=== PATIENT | female | born 1950 | race Caucasian/White ===

== ENCOUNTER 2018-03-24 16:02 | Emergency (ER) | payer OTHER, MEDICARE ==
--- NOTE | 2018-03-24 16:15 | PDOC ---
Rapid Medical Evaluation Time Seen by Provider: 03/24/18 16:10 Medical Evaluation: Allergies Allergy/AdvReac Type Severity Reaction Status Date / Time No Known Allergies Allergy Verified 03/24/18 16:09 03/24/18 16:10 Pt presents to the ED for possible mechanical trip and fall earlier today. States she fell backward and hit her head in the parking lot of her apartment building. Thinks she may have been unbalanced. Also with L back pain and hip pain. Doesn't think she lost consciousness, but she is unsure. States she heard a crack. Takes a baby aspirin daily. Denies dizziness, recent illness. Exam: ambulatory with cane, no gross neuro deficits Orders: Head CT, labs, urine,ekg Pt to proceed to the ED for further evaluation Discharge Disposition - Diagnosis Fall Qualifiers: Encounter type: initial encounter Qualified Code(s): W19.XXXA - Unspecified fall, initial encounter Head pain Qualifiers: Headache type: unspecified Headache chronicity pattern: acute headache Intractability: not intractable Qualified Code(s): R51 - Headache - Referrals - Patient Instructions - Post Discharge Activity
[2018-03-24 16:19] VITALS: BP 170/90; PULSE 80; BMI 40.3
--- NOTE | 2018-03-24 16:30 | PDOC ---
History of Present Illness - General Chief Complaint: Injury Stated Complaint: INJURY Time Seen by Provider: 03/24/18 16:10 - History of Present Illness Initial Comments: 68yo F with HTN, HLD, CKD stage 4 presenting after a fall. Patient was taking groceries from the car and felt off balance, hitting the back of her head. The episode was unwitnessed and she does not think she lost consciousness. Denies nausea, vomiting, urinary or fecal incontinence during/after the episode. Denies history of dysrhythmia or seizure. She reports 8/10 pain in her left lower back, especially when she moves. Patient takes ASA. She has been able to ambulate after fall. Patient has urinated since the fall and did not notice hematuria. No fever, chills, chest pain, or shortness of breath. Past History - Past Medical History Allergies/Adverse Reactions: Allergies Allergy/AdvReac Type Severity Reaction Status Date / Time No Known Allergies Allergy Verified 03/24/18 16:09 Home Medications: Ambulatory Orders Acetaminophen 650 mg PO Q6H PRN #30 tablet 03/24/18 Acetaminophen 650 mg PO Q6H PRN #60 tablet 03/24/18 Aspirin 81 mg PO DAILY 03/24/18 Candesartan Cilexetil [Atacand -] 32 mg PO DAILY 03/24/18 COPD: No Diabetes: Yes (insulin) HTN: Yes Hypercholesterolemia: Yes - Surgical History Cholecystectomy: Yes GI Surgery: Yes (ERCP) - Suicide/Smoking/Psychosocial Hx Smoking History: Never smoked Review of Systems - Review of Systems Comments:: Constitutional: no fever, no chills HEENT: no throat pain, no dysphagia Cardiovascular: no chest pain, no palpitations Respiratory: no cough, no shortness of breath Gastrointestinal: no abdominal pain, no nausea, no vomiting Genitourinary: no dysuria, no frequency Musculoskeletal: +back pain, no arthralgia Skin: +swelling in back of head, no itching Neurologic: no headache, no dizziness *Physical Exam - Vital Signs Last Vital Signs Temp Pulse Resp BP Pulse Ox 80 18 170/90 99 03/24/18 16:18 03/24/18 16:18 03/24/18 16:18 03/24/18 16:18 - Physical Exam Comments: General: Awake, alert, and fully oriented, in no acute distress Head: soft tissue swelling on back of head with superficial abrasion, hemostatic with dried blood in hair Eyes: EOMI, sclera anicteric ENT: Moist mucus membranes Neck: Normal ROM, supple Lungs: Lungs clear, Normal breath sounds Cardio: Regular rhythm, S1 and S2 present Abdomen: Soft, nontender. No guarding, no rebound, no masses Extremities: Normal range of motion, Distal pulses present SKIN: Warm, Dry, normal turgor Neurologic: Cranial nerves II through XII grossly intact. Normal speech, sensation, strength, coordination, and gait. ED Treatment Course - LABORATORY CBC & Chemistry Diagram: 03/24/18 17:08 03/24/18 17:08 Medical Decision Making - Medical Decision Making 68yo F with HTN, HLD, CKD stage 4 presenting after a fall. -DDX includes but not limited to mechanical fall, syncope, arrhythmia. History consistent with mechanical fall, but since fall was unwitnessed and patient is unsure if she lost consciousness will also evaluate for syncope. Soft tissue swelling on back of head, CT head ordered. Pain in left lower back, imaging ordered to assess for fractures or breaks. If UA shows hematuria, will consider CT abd/pelvis with IV contrast for kidney injury. Will ultrasound and rule out for free fluid. -Labs, Imaging -EKG: rate 71, QTc 428, NSR -Ofirmev 1g: patient reports alleviation of pain -CT head negative for acute pathology -Xrays negative for acute pathology; patient given incentive spirometer to prevent respiratory splinting -Cr=1.5, below patient's baseline of 1.7 *DC/Admit/Observation/Transfer Diagnosis at time of Disposition: Fall Qualifiers: Encounter type: initial encounter Qualified Code(s): W19.XXXA - Unspecified fall, initial encounter Head pain Qualifiers: Headache type: unspecified Headache chronicity pattern: acute headache Intractability: not intractable Qualified Code(s): R51 - Headache - Discharge Dispostion Disposition: HOME Condition at time of disposition: Improved - Prescriptions Prescriptions: Acetaminophen 650 mg PO Q6H PRN #30 tablet PRN Reason: Pain Acetaminophen 650 mg PO Q6H PRN #60 tablet PRN Reason: Pain - Referrals Referrals: Angelika Perez MD [Primary Care Provider] - Eliu Rios MD [Staff Physician] - - Patient Instructions Printed Discharge Instructions: How to Prevent Falls Additional Instructions: You came to the ED after a fall. Your workup was unremarkable. CT imaging of your head did not show any bleeds, breaks, or fractures. You can use tylenol for pain control: 650 mg every hours as needed. Prescription sent to your pharmacy. Use the incentive spirometer as instructed to prevent pneumonia. Follow up with your primary care provider to discuss this ED visit and ensure you are recovering appropriately. RETURN to the ED if you develop a severe headache, nausea and vomiting, lethargy , focal weakness, slurred speech, or any new or concerning symptoms. - Post Discharge Activity
[2018-03-24] MEDS ORDERED: ACETAMINOPHEN 1000 MG/100 ML VIAL (NON FORMULARY) IVPB ONE (17:00)
[2018-03-24] MEDS ORDERED: ACETAMINOPHEN INJECTION 100 ML IVPB ONE (17:08)
--- NOTE | 2018-03-24 17:08 | PDOC ---
Attending Attestation - Resident Resident Name: Malka Resendez - ED Attending Attestation I have performed the following: I have examined & evaluated the patient, The case was reviewed & discussed with the resident, I agree w/resident's findings & plan, Exceptions are as noted - HPI HPI: 03/24/18 17:33 68yo female with a mechanical fall earlier today. States she had gone grocery shopping, was unloading the trunk of the car, picked up a heavy bag, lost her balance when she lifted up the heavy bag and fell backwards hitting the back of her head and her buttock. Pt states she was able to get up - no LOC. States she walked into the house, unloaded all of her groceries and then decided that her L hip had pain when walking. Pt also states a hematoma to the back of her head. No neck or back pain. No chest pain, sob, palpitations. denies feeling lightheaded or dizzy. Denies blood in urine. No other complaints. - Physicial Exam PE: 03/24/18 17:35 Gen: aaox3, nad head: posterior scalp with large hematoma - no bleeding heent: MMM, EOMI neck: supple, no midline ttp, no stepoffs or deformities heart: +s1s2 reg Lungs: cta b/l abd: soft, nt/nd +bs ext: trace edema b/l ankles, b/l mild ttp in hips with FROM, pelvis is stable, pedal pulses and radial pulses intact, sensation intact, FROM of LE, FROM of UE neuro: cn ii-xii grossly intact, muscle strength 5/5, sensation intact, no focal neuro deficits, no midline ttp in back, no stepoffs or deformities - Medical Decision Making 03/24/18 17:08 I, Dr. Antonella Starr, DO, attest that this document has been prepared under my direction and personally reviewed by me in its entirety. I further attest, that it accurately reflects all work, treatment, procedures and medical decision -making performed by me. 03/24/18 18:01 a/p: 68yo female with a mechanical fall unloading her groceries -will obtain head ct -will obtain cxr and rib series -xray pelvis and hips -labs, ua, will monitor and reassess 03/24/18 21:40 pt with poss L lower rib fx sent to imaging school commissioner for official read 03/24/18 21:41 pt states feeling better will treat as rib fx states she only wants to take tylenol for pain will give incentive spirometer for home use will follow xray results pt stable for d/c to home Heart Score/ECG Review - ECG Intrepretation Comment:: 03/24/18 17:23 sinus at 71, nl axis, nl interval, no acute st/t wave findings
[2018-03-24 17:16] LABS: BASO % 0.5 % (0-2.0); HEMATOCRIT 31.8 % (32.4-45.2); HEMOGLOBIN 10.8 GM/dL (10.7-15.3); LYMPH % 16.6 % (8-40); MCH 29.9 pg (25.7-33.7); MEAN CELL VOLUME 87.9 fl (80-96); MEAN PLT VOLUME 8.7 fl (7.5-11.1); MONO % 7.2 % (3.8-10.2); NEUT % 71.7 % (42.8-82.8); PLATELET COUNT 200 K/MM3 (134-434); RBC 3.62 M/mm3 (3.60-5.2); RDW 12.8 % (11.6-15.6); WHITE BLOOD COUNT 9.5 K/mm3 (4.0-10.0)
[2018-03-24 17:29] LABS: INR 1.04 (0.83-1.09); PROTHROMBIN TIME (PATIENT) 12.3 SEC (9.7-13.0)
[2018-03-24 17:32] LABS: URINE APPEARANCE CLEAR; URINE BILIRUBIN NEGATIVE (<2.0 mg/dL); URINE COLOR STRAW; URINE GLUCOSE (UA) NEGATIVE (NEGATIVE); URINE KETONE NEGATIVE (NEGATIVE); URINE LEUK ESTERASE NEGATIVE (NEGATIVE); URINE NITRITE NEGATIVE (NEGATIVE); URINE PROTEIN NEGATIVE (NEGATIVE); URINE UROBILINOGEN NEGATIVE mg/dL (0.2-1.0)
[2018-03-24 17:48] LABS: ALBUMIN 3.5 g/dl (3.4-5.0); ALK PHOS 105 U/L (45-117); ANION GAP 9 MMOL/L (8-16); BILIRUBIN,TOTAL 0.2 mg/dL (0.2-1); BLOOD UREA NITROGEN 53 mg/dL (7-18); CALCIUM 8.6 mg/dL (8.5-10.1); CHLORIDE 112 mmol/L (98-107); CO2 24 mmol/L (21-32); CREATININE 1.5 mg/dL (0.55-1.3); GLUCOSE,RANDOM 124 mg/dL (74-106); POTASSIUM 4.3 mmol/L (3.5-5.1); SGOT/AST 20 U/L (15-37); SGPT/ALT 23 U/L (13-61); SODIUM 145 mmol/L (136-145); TOT PROT 6.8 g/dl (6.4-8.2)
--- NOTE | 2018-03-25 15:00 | EKG ---
Test Reason : Blood Pressure : / mmHG Vent. Rate : 071 BPM Atrial Rate : 071 BPM P-R Int : 158 ms QRS Dur : 080 ms QT Int : 394 ms P-R-T Axes : 024 012 028 degrees QTc Int : 428 ms NORMAL SINUS RHYTHM NORMAL ECG NO PREVIOUS ECGS AVAILABLE Confirmed by MD Gabby, Grant ([id number]) on 03/25/2018 2:59:57 PM Referred By: Confirmed By:Grant Pierre MD
== END 2018-03-24 22:31 | disposition home or self-care (01) ==
LOC: JER 16:02
PROC: 3E033NZ Introduction of Analgesics, Hypnotics, Sedatives into Peripheral Vein, Percutaneous Approach (ICD-10-PCS; principal; 2018-03-24)
DX: R51 Headache (principal); W18.39XA Other fall on same level, initial encounter; Y93.89 Activity, other specified; Y92.410 Unspecified street and highway as the place of occurrence of the external cause; I10 Essential (primary) hypertension; I12.9 Hypertensive chronic kidney disease with stage 1 through stage 4 chronic kidney disease, or unspecified chronic kidney disease; N18.9 Chronic kidney disease, unspecified
CPT/HCPCS: 36415; 70450-TC; 71101-TC-FY; 73502-TC-RT; 73523-TC-FY; 80053; 81003; 82550; 82553; 84484; 85025; 85610; 87086; 93005; 93010; 96374; 99283-25; J0131

== ENCOUNTER 2018-10-25 08:28 | Day surgery (SDC) | payer OTHER, MEDICARE ==
[2018-10-24 15:31] VITALS: BMI 42.4
[2018-10-25 11:12] VITALS: TEMP 99
[2018-10-25 13:27] VITALS: BP 121/54; PULSE 60
--- NOTE | 2018-10-26 12:22 | PATH ---
Surgical Pathology Report Patient Name: RUBÉN DHILLON [facility]. Rec. #: [id number] /Age/Gender: 1950 (Age: 68) / F Account: [id number] Location: U-ENDOSCOPY Taken: 10/25/2018 Received: 10/25/2018 Reported: 10/26/2018 Physicians: Ijeoma Baca M.D. Specimen(s) Received A: RECTAL POLYP B: DISTAL TRANSVERSE COLON POLYP C: PROXIMAL TRANSVERSE COLON POLYPS D: RIGHT COLON POLYP E: SIGMOID COLON POLYP Clinical History Polyps surveillance Postoperative diagnosis: Diverticulosis, colon polyps (rectal, distal, proximal transverse colon, right colon and sigmoid) Final Diagnosis A. RECTAL POLYP, BIOPSY: HYPERPLASTIC POLYP. B. DISTAL TRANSVERSE COLON, POLYP, BIOPSY: HYPERPLASTIC POLYP. C. PROXIMAL TRANSVERSE COLON, POLYPS, BIOPSY: TUBULAR ADENOMA(S). D. COLON, RIGHT, POLYP, BIOPSY: TUBULAR ADENOMA. E. SIGMOID COLON, POLYP, BIOPSY: POLYPOID COLONIC MUCOSA WITH SMALL LYMPHOID AGGREGATE AND SUPERFICIAL HYPERPLASTIC FEATURES. Electronically Signed Yissel Basilio M.D. Gross Description A. Received in formalin, labeled "biopsy rectal polyp" are 2 luna, irregular portions of soft tissue averaging 0.2 cm. in greatest dimension. The specimens are submitted in toto in one cassette. B. Received in formalin, labeled "biopsy distal transverse colon polyp" is a luna, irregular portion of soft tissue measuring 0.4 cm. in greatest dimension. The specimen is submitted in toto in one cassette. C. Received in formalin, labeled "biopsy proximal transverse colon polyps" are 2 luna, irregular portions of soft tissue averaging 0.4 cm. in greatest dimension. The specimens are submitted in toto in one cassette. D. Received in formalin, labeled "biopsy right colon" is a luna, irregular portion of soft tissue measuring 0.3 cm. in greatest dimension. The specimen is submitted in toto in one cassette. E. Received in formalin, labeled "biopsy sigmoid colon polyp" are 3 luna, irregular portions of soft tissue ranging from 0.3-0.4 cm. in greatest dimension. The specimens are submitted in toto in one cassette. DL/10/25/2018 saudi/10/25/2018
== END 2018-10-25 12:15 | disposition home or self-care (01) ==
LOC: JASU-ENDO 08:28
PROVIDERS: ATTEND Internal Medicine Gastroenterology
PROC: 0DBL8ZX Excision of Transverse Colon, Via Natural or Artificial Opening Endoscopic, Diagnostic (ICD-10-PCS; 2018-10-25)
PROC: 0DBN8ZX Excision of Sigmoid Colon, Via Natural or Artificial Opening Endoscopic, Diagnostic (ICD-10-PCS; 2018-10-25)
PROC: 0DBP8ZX Excision of Rectum, Via Natural or Artificial Opening Endoscopic, Diagnostic (ICD-10-PCS; 2018-10-25)
PROC: 0DBK8ZX Excision of Ascending Colon, Via Natural or Artificial Opening Endoscopic, Diagnostic (ICD-10-PCS; principal; 2018-10-25 09:30)
DX: Z86.010 Personal history of colon polyps (principal); D12.3 Benign neoplasm of transverse colon; D12.2 Benign neoplasm of ascending colon; D12.5 Benign neoplasm of sigmoid colon; K63.5 Polyp of colon; K57.30 Diverticulosis of large intestine without perforation or abscess without bleeding; K64.8 Other hemorrhoids; E11.22 Type 2 diabetes mellitus with diabetic chronic kidney disease; I12.9 Hypertensive chronic kidney disease with stage 1 through stage 4 chronic kidney disease, or unspecified chronic kidney disease; N18.9 Chronic kidney disease, unspecified; Z79.4 Long term (current) use of insulin; E78.5 Hyperlipidemia, unspecified
CPT/HCPCS: 82962; 88305-TC

== ENCOUNTER 2018-12-20 03:47 | Emergency (ER) | payer OTHER, MEDICARE ==
[2018-12-20 04:45] VITALS: TEMP 97.8; BMI 41.1
--- NOTE | 2018-12-20 05:33 | PDOC ---
History of Present Illness - General Chief Complaint: Lightheaded Stated Complaint: DIZZY Time Seen by Provider: 12/20/18 05:27 History Source: Patient, Spouse ( present at bedside.), Old Records Exam Limitations: No Limitations - History of Present Illness Initial Comments: HPI: 68 y/o female presenting to [facility] ER complaining of sudden onset of dizziness and lightheadedness at approx. 3 am this morning. Pt woke from sleep and found herself to be extremely lightheaded when attempting to sit up in bed. Was able to walk with her husbands registered dental assistant to the bathroom where she experienced loose stools. Unable to identify worsening factors aside from sitting up in bed. Endorses nausea without vomiting. Denies chest pain or SOB. gave the pt 325mg ASA before electing to seek emergency evaluation. Pt denies h/o of similar symptoms. Denies recent illness. Pt reports symptoms have improved without intervention at time of initial interview by this provider. Social Hx: - EtOH: denies - Tobacco: denies - Street drugs: denies Medical Hx: - HTN - HLD - CKD stage 4 - Insulin dependent diabetes - Chronic tinnitus Surgical Hx: - Cholecystectomy Review of Systems: In addition to that documented in the HPI above, the additional ROS was obtained : Constitutional: Denies fevers, chills, or syncope Head: Denies vision changes ENMT: Denies sore throat CV: Denies chest pain Resp: Denies SOB GI: Denies vomiting, diarrhea, melena, or bright red blood per rectum : Denies painful urination, increased urinary frequency, or hematuria MSK: Denies recent trauma Skin: Denies new rashes Neuro: Denies new numbness or tingling or weakness Endocrine: Denies polyuria Heme: Denies bleeding or bruising Physical Examination: Constitutional: Well-developed, well-nourished elderly adult female in no acute distress or obvious discomfort. Obese body habitus. Found semi-fowlers on hospital bed. Alert and oriented x4. Answered all questions appropriately and completely. Speech was non-labored, non-pressured. Head: Normocephalic. No obvious external signs of trauma. Eyes: Pupils 4mm and PERRL bilaterally. EOMI. No vertical or horizontal nystagmus. Sclerae white. Conjunctiva moist and not injected. Ears: External auditory canals and tympanic membranes pearly cassidy. Hearing grossly intact. Nose: No nasal discharge. Throat: Oral cavity and pharynx normal. No inflammation, swelling, exudate, or lesions. Teeth and gingiva in good general condition. Uvula midline. No tongue deviation. Neck: Supple, trachea is midline. Cardiovascular / Chest: Regular rate and regular rhythm. No murmur, rubs, clicks , or gallops. Peripheral pulses: radial pulses full. No pretibial edema. Respiratory: Breathing unlabored. Equal chest rise and fall. Clear to auscultation bilaterally. No stridor, no wheezing, no rhonchi. Gastrointestinal: abdomen is soft, non-tender, non-distended. Neuro: Alert and oriented. Moving all four extremities spontaneously. No focal deficits. Cranial nerves intact. Sensation to all four extremities intact. Upper and lower extremities: proximal and distal strength 5/5. Boiler Out strength 5/ 5 - equal and symmetric. Plantar flexion and dorsiflexion 5/5. No nuchal rigidity. Intact rapid alternating movements, finger to nose, and heel to [place]. Gait normal. Skin: Warm, dry, and intact. Psych: Affect: appropriate. Mood: normal. MDM: *Reviewed vital signs, nursing notes, and prior visit documentation (if available). 68 y/o female presenting for sudden onset of vertiginous symptoms that have improved without intervention. PMH significant for diabetes, HTN, and CKD. Afebrile. Vitals unremarkable for hypotension or tachycardia. Physical exam as described above. Unrevealing. Neurologically intact. Low suspicion for central lesion but will evaluate further with head CT. Low suspicion for ACS, CVA, DKA, uremia, or metabolic derangement. Orthostatic vitals unremarkable. EKG unremarkable for ischemic changes. Will obtain CBC, CMP, and cardiac profile to further evaluate. Ordered IVFB. Pt signed out to attending Dr. Christensen after he was verbally appraised of the pts HPI, current ED course, and plan of management. Will f/u on pending labs and head CT. Butch Trevizo M.D., PGY2 Emergency Medicine Resident Past History - Past Medical History Allergies/Adverse Reactions: Allergies Allergy/AdvReac Type Severity Reaction Status Date / Time No Known Allergies Allergy Verified 03/24/18 16:09 Home Medications: Ambulatory Orders Aspirin 81 mg PO DAILY 03/24/18 Candesartan Cilexetil [Atacand -] 32 mg PO HS 03/24/18 Atorvastatin Calcium 80 mg PO DAILY 10/24/18 Carvedilol [Coreg -] 25 mg PO BID 10/24/18 Cholecalciferol (Vitamin D3) [Vitamin D3] 50,000 unit PO WEEKLY 10/24/18 Insulin Glargine,Hum.rec.anlog [Lantus Solostar] 30 unit SQ HS 10/24/18 Insulin Lispro Protamin/Lispro [Humalog Mix 75-25 Kwikpen] 15 unit SQ TID COPD: No Diabetes: Yes (insulin) GI Disorders: Yes (COLON POLYPS) HTN: Yes Hypercholesterolemia: Yes - Surgical History Abdominal Surgery: Yes (UMBILICAL HERNIA REPAIR) Cholecystectomy: Yes (LAPAROSCOPIC) GI Surgery: Yes (ERCP) Orthopedic Surgery: Yes (LT KNEE REPLACEMENT) - Immunization History Immunization Up to Date: No - Suicide/Smoking/Psychosocial Hx Smoking History: Never smoked Have you smoked in the past 12 months: No If you are a former smoker, when did you quit?: 1974 Information on smoking cessation initiated: No Hx Alcohol Use: No Drug/Substance Use Hx: No Substance Use Type: Marijuana *Physical Exam - Vital Signs Last Vital Signs Temp Pulse Resp BP Pulse Ox 97.8 F 64 20 175/85 H 98 12/20/18 04:00 12/20/18 04:00 12/20/18 04:00 12/20/18 04:00 12/20/18 04:00 ED Treatment Course - LABORATORY CBC & Chemistry Diagram: 12/20/18 06:15 12/20/18 06:15 *DC/Admit/Observation/Transfer Diagnosis at time of Disposition: Lightheaded - Discharge Dispostion Condition at time of disposition: Stable - Referrals Referrals: Angelika Perez MD [Primary Care Provider] - - Patient Instructions - Post Discharge Activity
[2018-12-20 05:56] LABS: URINE APPEARANCE CLEAR; URINE BILIRUBIN NEGATIVE (NEGATIVE); URINE COLOR YELLOW; URINE GLUCOSE (UA) NEGATIVE (NEGATIVE); URINE KETONE NEGATIVE (NEGATIVE); URINE LEUK ESTERASE NEGATIVE (NEGATIVE); URINE NITRITE NEGATIVE (NEGATIVE); URINE PROTEIN TRACE (NEGATIVE); URINE UROBILINOGEN 0.2 mg/dL (0.2-1.0)
[2018-12-20] MEDS ORDERED: LACTATED RINGERS SOLUTION 1000 ML INFUS.BAG IV ONE (06:06)
[2018-12-20 06:29] LABS: BASO % 1.1 % (0-2.0); EOS % 3.2 % (0-4.5); HEMATOCRIT 33.3 % (32.4-45.2); HEMOGLOBIN 11.3 GM/dL (10.7-15.3); LYMPH % 18.1 % (8-40); MCHC 34.1 g/dl (32.0-36.0); MEAN PLT VOLUME 8.9 fl (7.5-11.1); MONO % 5.9 % (3.8-10.2); NEUT % 71.7 % (42.8-82.8); PLATELET COUNT 164 K/MM3 (134-434); RBC 3.78 M/mm3 (3.60-5.2); WHITE BLOOD COUNT 10.6 K/mm3 (4.0-10.0)
--- NOTE | 2018-12-20 06:41 | PDOC ---
Documentation entered by Dary Medley SCRIBE, acting as scribe for Loraine Meehan DO. Loraine Meehan DO: This documentation has been prepared by the Jasmyne lange Adrianna, SCRIBE, under my direction and personally reviewed by me in its entirety. I confirm that the documentation accurately reflects all work, treatment, procedures, and medical decision making performed by me. Attending Attestation - Resident Resident Name: Butch Trevizo - ED Attending Attestation I have performed the following: I have examined & evaluated the patient, The case was reviewed & discussed with the resident, I agree w/resident's findings & plan - HPI HPI: The patient is a 68 year old female, with a significant PMH of IDDM, HTN, HLD, and CKD stage 4, who presents to the ED for evaluation of lightheadedness, nausea, and diarrhea for a few hours. Patient notes she woke up 3 hours ago, and immediately felt lightheaded, dizzy, and nauseous. Symptoms were exacerbated with sitting up. Patient called for her , who brought her to the bathroom She endorses loose stools and feeling unsteady on her feet. Patient s notes concern for stroke, so he gave her 325 aspirin. Patient notes her symptoms have improved since her arrival to the ED. Allergies: NKA, NKDA Surgical History: Cholecystectomy, ERCP Social History: Denies EtOH, tobacco, or illicit drug use PCP: Dr. Perez - Physicial Exam PE: Agree with resident exam - Medical Decision Making 12/20/18 19:27 68-year-old female with lightheadedand dizziness Labs, CT scan pending EKG shows no acute abnormalities Case signed out to oncoming attending
[2018-12-20 06:58] LABS: ALBUMIN 3.6 g/dl (3.4-5.0); ALK PHOS 106 U/L (45-117); ANION GAP 5 MMOL/L (8-16); BILIRUBIN,TOTAL 0.3 mg/dL (0.2-1); BLOOD UREA NITROGEN 48.8 mg/dL (7-18); CHLORIDE 109 mmol/L (98-107); CO2 28 mmol/L (21-32); CREATININE 1.7 mg/dL (0.55-1.3); GLUCOSE,RANDOM 131 mg/dL (74-106); SGOT/AST 20 U/L (15-37); SGPT/ALT 20 U/L (13-61); SODIUM 141 mmol/L (136-145); TOT PROT 6.8 g/dl (6.4-8.2)
--- NOTE | 2018-12-20 08:16 | EKG ---
Test Reason : Blood Pressure : / mmHG Vent. Rate : 063 BPM Atrial Rate : 063 BPM P-R Int : 170 ms QRS Dur : 084 ms QT Int : 420 ms P-R-T Axes : 043 016 040 degrees QTc Int : 429 ms NORMAL SINUS RHYTHM NORMAL ECG WHEN COMPARED WITH ECG OF 24-MAR-2018 17:11, NO SIGNIFICANT CHANGE WAS FOUND Confirmed by KATELIN MORALES MD ([id number]) on 12/20/2018 8:16:19 AM Referred By: Confirmed By:KATELIN MORALES MD
--- NOTE | 2018-12-20 10:20 | PDOC ---
*Physical Exam - Vital Signs Last Vital Signs Temp Pulse Resp BP Pulse Ox 97.8 F 70 20 149/67 98 12/20/18 04:00 12/20/18 06:17 12/20/18 04:00 12/20/18 06:17 12/20/18 04:00 - Physical Exam Comments: 12/20/18 10:22 Patient 68-year-old female with multiple comorbidities who presented to the ER with sudden onset of vertiginous symptoms which resolved without intervention. On reassessment, patient is resting comfortably, without any acute symptomatology. CT of head showed no evidence acute intracranial pathology. CBC is within normal limit. CMP is consistent with previous history of chronic renal insufficiency. Cardiac enzymes are normal. ACS was not suspected. I do not suspect patient's symptoms are related to TIA of the posterior circulation. MRI is unnecessary at this time. Case discussed with Dr. Lo. She agrees with the plan of care. Will discharge with outpatient follow-up. ED Treatment Course - LABORATORY CBC & Chemistry Diagram: 12/20/18 06:15 12/20/18 06:15 - ADDITIONAL ORDERS Additional order review: Laboratory Results 12/20/18 12/20/18 12/20/18 06:15 05:50 05:46 Sodium 141 Potassium 5.0 Chloride 109 H Carbon Dioxide 28 Anion Gap 5 L BUN 48.8 H Creatinine 1.7 H Est GFR (CKD-EPI)AfAm 34.80 Est GFR (CKD-EPI)NonAf 30.03 POC Glucometer 102 Random Glucose 131 H Calcium 9.0 Total Bilirubin 0.3 AST 20 ALT 20 Alkaline Phosphatase 106 Creatine Kinase 205 H Creatine Kinase Index 2.7 CK-MB (CK-2) 5.6 H Troponin I < 0.02 Total Protein 6.8 Albumin 3.6 Urine Color Yellow Urine Appearance Clear Urine pH 5.0 Ur Specific [place] 1.020 Urine Protein Trace Urine Glucose (UA) Negative Urine Ketones Negative Urine Blood Negative Urine Nitrite Negative Urine Bilirubin Negative Urine Urobilinogen 0.2 Ur Leukocyte Esterase Negative 12/20/18 12/20/18 06:15 05:46 RBC 3.78 MCV 88.0 MCHC 34.1 RDW 13.0 MPV 8.9 Neutrophils % 71.7 Lymphocytes % 18.1 Monocytes % 5.9 Eosinophils % 3.2 Basophils % 1.1 POC Glucometer 102 - Medications Given in the ED: ED Medications Discontinued Medications Generic Name Dose Route Start Last Admin Trade Name Brittnee PRN Reason Stop Dose Admin Lactated Ringer's 1,000 ml 12/20/18 06:06 12/20/18 06:15 Lactated Ringers Solution IV 12/20/18 06:07 1,000 ml ONCE ONE Administration *DC/Admit/Observation/Transfer Diagnosis at time of Disposition: Lightheaded, Vertigo - Discharge Dispostion Disposition: HOME Condition at time of disposition: Stable - Referrals Referrals: Angelika Perez MD [Primary Care Provider] - - Patient Instructions Printed Discharge Instructions: Vertigo - Post Discharge Activity
[2018-12-20 11:24] VITALS: BP 166/64; PULSE 63
== END 2018-12-20 11:00 | disposition home or self-care (01) ==
LOC: JER 03:47
PROC: 3E0337Z Introduction of Electrolytic and Water Balance Substance into Peripheral Vein, Percutaneous Approach (ICD-10-PCS; principal; 2018-12-20)
DX: R42 Dizziness and giddiness (principal); E11.22 Type 2 diabetes mellitus with diabetic chronic kidney disease; I12.0 Hypertensive chronic kidney disease with stage 5 chronic kidney disease or end stage renal disease; N18.6 End stage renal disease; Z79.4 Long term (current) use of insulin; E78.5 Hyperlipidemia, unspecified
CPT/HCPCS: 36415; 70450-TC; 80053; 81003; 82550; 82553; 82962; 84484; 85025; 87086; 93005; 93010; 99285-25

== ENCOUNTER 2019-12-28 04:38 | Day surgery (SDC) | payer OTHER, MEDICARE ==
[2019-12-27 12:29] VITALS: BMI 41.1
--- NOTE | 2019-12-28 10:01 | HP ---
Admitting History and Physical - Admission Chief Complaint: Axial Low back Pain History of Present Illness: The patient complains of axial low back pain. History Source: Patient - Advance Directives Advance Directives: Yes: Living Will, Health Care Proxy - Smoking History Smoking history: Former smoker Have you smoked in the past 12 months: No If you are a former smoker, when did you quit?: 1974 - Alcohol/Substance Use Hx Alcohol Use: No Home Medications - Allergies Allergies/Adverse Reactions: Allergies Allergy/AdvReac Type Severity Reaction Status Date / Time No Known Allergies Allergy Verified 12/28/19 08:34 - Home Medications Home Medications: Ambulatory Orders Candesartan Cilexetil [Atacand -] 32 mg PO HS 03/24/18 Atorvastatin Calcium 80 mg PO DAILY 10/24/18 Carvedilol [Coreg -] 25 mg PO BID 10/24/18 Cholecalciferol (Vitamin D3) [Vitamin D3] 50,000 unit PO WEEKLY 10/24/18 Insulin Glargine,Hum.rec.anlog [Lantus Solostar] 28 unit SQ HS 10/24/18 Amlodipine Besylate [Norvasc -] 2.5 mg PO HS 08/01/19 Semaglutide [Rybelsus] 7 mg PO DAILY 08/01/19 Aspirin Coated [Ecotrin -] 81 mg PO DAILY 12/27/19 Chlorthalidone 50 mg PO DAILY 12/27/19 Insulin Lispro [Humalog] 4 unit SQ ASDIR 12/27/19 Review of Systems - Review of Systems Constitutional: reports: No Symptoms Eyes: reports: No Symptoms HENT: reports: No Symptoms Neck: reports: No Symptoms Cardiovascular: reports: No Symptoms Respiratory: reports: No Symptoms Gastrointestinal: reports: No Symptoms Genitourinary: reports: No Symptoms Breasts: reports: No Symptoms Reported Musculoskeletal: reports: Back Pain Integumentary: reports: No Symptoms Neurological: reports: No Symptoms Endocrine: reports: No Symptoms Hematology/Lymphatic: reports: No Symptoms Psychiatric: reports: No Symptoms Physical Examination Vital Signs: Vital Signs Temperature 97.5 F L 12/28/19 08:11 Pulse Rate 78 12/28/19 08:11 Respiratory Rate 20 12/28/19 08:11 Blood Pressure 103/55 L 12/28/19 08:11 O2 Sat by Pulse Oximetry (%) 98 07/31/20 08:11 Imaging - Results MRI: Image Reviewed Assessment/Plan The patient pain is secondayr to Lumabr sponmdylosis s/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 Pain has returned. 1. I will perform second confirmatory diagnostic b/l L3 L4 L5 medial branch block.
[2019-12-28] MEDS ORDERED: BUPIVACAINE HCL/PF 0.75% 10 ML VIAL NR ONE (10:48)
[2019-12-28] MEDS ORDERED: LIDOCAINE HCL 1% PRESERVATIVE FREE - 30ML VIAL INF ONE (11:02)
[2019-12-28 12:05] VITALS: BP 130/85; PULSE 80; TEMP 97.8
--- NOTE | 2020-01-02 13:48 | PROC ---
Procedure Note Procedure: Date of Service 12/28/19 Preprocedure Diagnosis:Lumbar Spondylosis Post Procedure Diagnosis: same Anesthesia: Local Procedure Performed: Right and Left L3 L4 L5 medial branch Blocks Procedure: After the risks and benefits were explained, informed consent was obtained. The patient was then taken to the procedure room and positioned prone on the procedure table. Time out was performed. The region overlying the appropriate vertebral bodies was identified using fluoroscopy. The skin was prepped and draped in the usual sterile fashion. The skin and soft tissues were anesthetized using 1% lidocaine. Using fluoroscopic guidance, 22 gauge 3.5 inch spinal needles were then introduced to the juncture of the superior articular processes and the transverse processes of the RIGHT L3, L4, and L5 medial branches are located. There was no epidural or vascular flow observed. .75% bupivacaine was drawn into a syringe. 0.5cc of this solution was then injected at each level. The same procedure was repeated on the LEFT side at the same levels. The patient tolerated the procedure well and there were no complications. The patient was taken to the post procedure recovery area in good condition. Vital signs remained stable before, and after the procedure. The patient was given oral follow-up instructions.The patient was givena follow up appointment with me in the near future. Elmer Landa D.O.
== END 2019-12-28 12:00 | disposition home or self-care (01) ==
LOC: JASU-SURG 04:38
PROVIDERS: ATTEND Pain Medicine Pain Medicine
PROC: BR16YZZ Fluoroscopy of Lumbar Facet Joint(s) using Other Contrast (ICD-10-PCS; 2019-12-28)
PROC: 3E0T3BZ Introduction of Anesthetic Agent into Peripheral Nerves and Plexi, Percutaneous Approach (ICD-10-PCS; principal; 2019-12-28 09:30)
DX: M47.896 Other spondylosis, lumbar region (principal); Z87.891 Personal history of nicotine dependence
CPT/HCPCS: 76000-TC-FY

== ENCOUNTER 2020-01-18 04:13 | Day surgery (SDC) | payer OTHER, MEDICARE ==
[2020-01-15 19:34] VITALS: BMI 41.1
[2020-01-18] MEDS ORDERED: methylPREDNISolone ACET (DEPO) 40 MG/1 ML VIAL ONE (07:14)
[2020-01-18] MEDS ORDERED: BETAMET ACET/BETAMET NA PH 30 MG/5 ML VIAL ONE (07:14)
[2020-01-18] MEDS ORDERED: LIDOCAINE HCL 1%, 10 MG/ML (20ML VIAL) ONE (07:14)
[2020-01-18] MEDS ORDERED: BUPIVACAINE HCL/PF 0.25% (2.5MG/ML) 10 ML VIAL ONE (07:14)
[2020-01-18] MEDS ORDERED: DEXAMETHASONE SOD PHOSPHATE 4 MG/1 ML VIAL ONE (07:14)
[2020-01-18] MEDS ORDERED: LIDOCAINE HCL 2% (20ML MULTI-DOSE VIAL) ONE (08:20)
[2020-01-18] MEDS ORDERED: BUPIVACAINE HCL/PF 0.75% 10 ML VIAL ONE (08:21)
[2020-01-18] MEDS ORDERED: LIDOCAINE HCL 1%, 10 MG/ML (50 mL VIAL) NR ONE ×2 (08:25)
[2020-01-18] MEDS ORDERED: DEXAMETHASONE SOD PHOSPHATE 4 MG/1 ML VIAL NR ONE (08:26)
[2020-01-18] MEDS ORDERED: LIDOCAINE HCL 2% (50ML VIAL) NR ONE ×2 (08:26)
[2020-01-18] MEDS ORDERED: BUPIVACAINE HCL/PF 0.75% 10 ML VIAL NR ONE ×2 (08:27)
[2020-01-18 09:08] VITALS: TEMP 97.8
[2020-01-18 09:28] VITALS: BP 110/60; PULSE 70
--- NOTE | 2020-01-22 09:05 | PROC ---
Procedure Note Procedure: Pre procedure Diagnosis: Lumbar Spondylosis Post Procedure Diagnosis: same Anesthesia: local Procedure Performed: Right L3 L4 L5 medial branch radiofrequency Ablation The patient was sterilely prepped and draped in the usual fashion while in the prone position. 1% Lidocaine was used to provide soft tissue anesthesia. Time out was performed. Under fluoroscopic guidance, 10mm active tip radiofrequency probes were successfully directed over the RIGHT L3, L4 and L5 dorsal rami at the intersection of the transverse processes and superior articular processes. Needle tip positions were confirmed with both sensory and motor stimulation, both of which resulted in appropriate responses in the lumbar region, and no reponse in the lower extremities. Lesions were performed at each site at a temperature of 90 degrees Celsius for duration of 90 seconds. Prior to each lesion, 1mL of a cocktail of 4mL of 2% l idocaine and 1mL Omnipaque 180 was injected at each site. Following each lesion, 0.5mL of solution containing 1mL dexamethasone and 2mL of .75% bupivacaine, was injected at each site. The patient tolerated the procedure well and there were no complications. The patient was taken to the post procedure recovery area in good condition. Vital signs remained stable before, during, and after the procedure. The patient was given oral and written follow-up instructions. The patient was given a follow up appointment with me in the near future. Elmer CALHOUN
== END 2020-01-18 09:29 | disposition home or self-care (01) ==
LOC: JASU-SURG 04:13
PROVIDERS: ATTEND Pain Medicine Pain Medicine
PROC: 3E0T3TZ Introduction of Destructive Agent into Peripheral Nerves and Plexi, Percutaneous Approach (ICD-10-PCS; principal; 2020-01-18 08:30)
DX: M47.896 Other spondylosis, lumbar region (principal); M54.5 Low back pain
CPT/HCPCS: 76000-TC-FY

== ENCOUNTER 2020-02-08 04:57 | Day surgery (SDC) | payer OTHER, MEDICARE ==
[~2020-02-08 04:57] MED LIST: BUPIVACAINE HCL/PF 0.75% 10 ML VIAL NR ONE; IOHEXOL 180 MG/1 ML ML IJ ONE; LIDOCAINE HCL 1% PRESERVATIVE FREE - 30ML VIAL NR ONE
[2020-02-08 07:26] VITALS: TEMP 97
[2020-02-08] MEDS ORDERED: LIDOCAINE HCL/PF 1% SDV 5ML VIAL ONE (07:37)
[2020-02-08] MEDS ORDERED: BUPIVACAINE HCL/PF 0.75% 10 ML VIAL ONE (07:37)
--- NOTE | 2020-02-08 08:12 | HP ---
Admitting History and Physical - Admission Chief Complaint: lEFT lOW BACK pAIN History of Present Illness: Pt complains of axial low back pain on the left. History Source: Patient - Smoking History Smoking history: Former smoker Have you smoked in the past 12 months: No If you are a former smoker, when did you quit?: 1974 - Alcohol/Substance Use Hx Alcohol Use: No Home Medications - Allergies Allergies/Adverse Reactions: Allergies Allergy/AdvReac Type Severity Reaction Status Date / Time No Known Allergies Allergy Verified 01/18/20 07:31 - Home Medications Home Medications: Ambulatory Orders Candesartan Cilexetil [Atacand -] 32 mg PO HS 03/24/18 Atorvastatin Calcium 80 mg PO DAILY 10/24/18 Carvedilol [Coreg -] 25 mg PO BID 10/24/18 Cholecalciferol (Vitamin D3) [Vitamin D3] 50,000 unit PO WEEKLY 10/24/18 Insulin Glargine,Hum.rec.anlog [Lantus Solostar] 28 unit SQ HS 10/24/18 Amlodipine Besylate [Norvasc -] 2.5 mg PO HS 08/01/19 Semaglutide [Rybelsus] 7 mg PO DAILY 08/01/19 Aspirin Coated [Ecotrin -] 81 mg PO DAILY 12/27/19 Chlorthalidone 50 mg PO DAILY 12/27/19 Insulin Lispro [Humalog] 4 unit SQ ASDIR 12/27/19 Review of Systems - Review of Systems Constitutional: reports: No Symptoms Eyes: reports: No Symptoms HENT: reports: No Symptoms Neck: reports: No Symptoms Cardiovascular: reports: No Symptoms Respiratory: reports: No Symptoms Gastrointestinal: reports: No Symptoms Genitourinary: reports: No Symptoms Musculoskeletal: reports: Back Pain Neurological: reports: No Symptoms Endocrine: reports: No Symptoms Hematology/Lymphatic: reports: No Symptoms Psychiatric: reports: No Symptoms Physical Examination Vital Signs: Vital Signs Temperature 97.0 F L 02/08/20 07:22 Pulse Rate 78 02/08/20 07:22 Respiratory Rate 20 02/08/20 07:22 Blood Pressure 102/56 L 02/08/20 07:22 O2 Sat by Pulse Oximetry (%) 97 02/08/20 07:22 Constitutional: Yes: No Distress, Calm Eyes: Yes: Conjunctiva Clear, EOM Intact HENT: Yes: Atraumatic, Normocephalic Neck: Yes: Trachea Midline Cardiovascular: Yes: Regular Rate and Rhythm Respiratory: Yes: Regular Gastrointestinal: Yes: WNL Musculoskeletal: Yes: Back Pain Extremities: Yes: WNL Edema: No Integumentary: Yes: WNL Neurological: Yes: WNL ...Motor Strength: WNL Psychiatric: Yes: WNL Imaging - Results X-ray: Report Reviewed, Image Reviewed Assessment/Plan The patients left low back pain is secondary to lumbar spondylosis. I will perform Left L3 L4 L5 Radiofrequency ablation for [employer] pain relief.
--- NOTE | 2020-02-08 08:13 | PROC ---
Procedure Note Procedure: Pre procedure Diagnosis: Lumbar Spondylosis Post Procedure Diagnosis: same Anesthesia: local Procedure Performed: Left L3 L4 L5 medial branch radiofrequency Ablation The patient was sterilely prepped and draped in the usual fashion while in the prone position. 1% Lidocaine was used to provide soft tissue anesthesia. Time out was performed. Under fluoroscopic guidance, 10mm active tip radiofrequency probes were successfully directed over the RIGHT L3, L4 and L5 dorsal rami at the intersection of the transverse processes and superior articular processes. Needle tip positions were confirmed with both sensory and motor stimulation, both of which resulted in appropriate responses in the lumbar region, and no reponse in the lower extremities. Lesions were performed at each site at a temperature of 90 degrees Celsius for duration of 90 seconds. Prior to each lesion, 1mL of of 2% lidocaine was injec arnie at each site. Following each lesion, 0.5mL of solution containing 1mL dexamethasone and 2mL of .75% bupivacaine, was injected at each site. The patient tolerated the procedure well and there were no complications. The patient was taken to the post procedure recovery area in good condition. Vital signs remained stable before, during, and after the procedure. The patient was given oral and written follow-up instructions. The patient was given a follow up appointment with me in the near future. Elmer CALHOUN
[2020-02-08] MEDS ORDERED: DEXAMETHASONE SOD PHOSPHATE/PF 10 MG/ML SDV ONE (08:37)
[2020-02-08] MEDS ORDERED: LIDOCAINE HCL/PF 2% SDV 5ML VIAL ONE ×2 (08:38→08:40)
[2020-02-08] MEDS ORDERED: LIDOCAINE HCL 1% PRESERVATIVE FREE - 30ML VIAL NR ONE (08:50)
[2020-02-08] MEDS ORDERED: LIDOCAINE HCL/PF 2% SDV 5ML VIAL INF ONE ×2 (08:50)
[2020-02-08] MEDS ORDERED: BUPIVACAINE HCL/PF 0.75% 10 ML VIAL NR ONE ×2 (08:50)
[2020-02-08] MEDS ORDERED: DEXAMETHASONE SOD PHOSPHATE 10 MG/1 ML VIAL IM ONE (08:50)
[2020-02-08 10:12] VITALS: BP 126/56; PULSE 70
== END 2020-02-08 10:00 | disposition home or self-care (01) ==
LOC: JASU-SURG 04:57
PROVIDERS: ATTEND Pain Medicine Pain Medicine
PROC: BR16YZZ Fluoroscopy of Lumbar Facet Joint(s) using Other Contrast (ICD-10-PCS; 2020-02-08)
PROC: 3E0T3TZ Introduction of Destructive Agent into Peripheral Nerves and Plexi, Percutaneous Approach (ICD-10-PCS; principal; 2020-02-08 09:00)
DX: M47.896 Other spondylosis, lumbar region (principal); M54.5 Low back pain
CPT/HCPCS: 76000-TC-FY; J1100

== ENCOUNTER 2020-06-12 15:39 | Emergency (ER) | payer OTHER, MEDICARE ==
[2020-06-12 16:04] VITALS: PULSE 84; BMI 37.8
[2020-06-12] MEDS ORDERED: amLODIPine BESYLATE 2.5 MG TABLET (FP) PO ONE (20:06)
[2020-06-12] MEDS ORDERED: CARVEDILOL 25 MG TABLET (FP) PO ONE (20:07)
[2020-06-12] MEDS ORDERED: amLODIPine BESYLATE 2.5 MG TABLET (FP) ONE (20:14)
[2020-06-12] MEDS ORDERED: CARVEDILOL 12.5 MG TABLET (FP) ONE (20:14)
[2020-06-12 20:39] LABS: BASO % 0.6 % (0-2.0); HEMATOCRIT 33.2 % (32.4-45.2); LYMPH % 27.9 % (8-40); MCH 29.2 pg (25.7-33.7); MCHC 33.1 g/dl (32.0-36.0); MEAN PLT VOLUME 8.8 fl (7.5-11.1); MONO % 7.1 % (3.8-10.2); NEUT % 61.4 % (42.8-82.8); PLATELET COUNT 217 K/MM3 (134-434); RBC 3.77 M/mm3 (3.60-5.2); RDW 14.6 % (11.6-15.6); WHITE BLOOD COUNT 8.3 K/mm3 (4.0-10.0)
[2020-06-12 20:56] LABS: CHLORIDE 105 mmol/L (98-107); POTASSIUM 4.4 mmol/L (3.5-5.1); SODIUM 138 mmol/L (136-145)
[2020-06-12 21:01] LABS: CALCIUM 8.6 mg/dL (8.5-10.1)
[2020-06-12 21:03] LABS: ALBUMIN 3.5 g/dl (3.4-5.0); ANION GAP 6 MMOL/L (8-16); BLOOD UREA NITROGEN 30.8 mg/dL (7-18); CO2 27 mmol/L (21-32); GLUCOSE,RANDOM 99 mg/dL (74-106)
[2020-06-12 21:05] LABS: CREATININE 1.5 mg/dL (0.55-1.3); SGOT/AST 26 U/L (15-37); SGPT/ALT 30 U/L (13-61)
[2020-06-12 21:06] LABS: BILIRUBIN,TOTAL 0.6 mg/dL (0.2-1); TOT PROT 6.8 g/dl (6.4-8.2)
[2020-06-12 21:08] LABS: ALK PHOS 94 U/L (45-117)
[2020-06-12 21:30] VITALS: BP 133/68
== END 2020-06-12 21:52 | disposition home or self-care (01) ==
LOC: JER 15:39
DX: I10 Essential (primary) hypertension (principal)
CPT/HCPCS: 36415; 71046-TC-FY; 80053; 82550; 82553; 84484; 85025; 93005; 93010; 99285-25

== ENCOUNTER 2021-12-22 04:33 | Day surgery (SDC) | payer OTHER, MEDICARE ==
[2021-12-18 10:36] VITALS: BMI 36.8
[2021-12-22] MEDS ORDERED: DEXAMETHASONE SOD PHOSPHATE 10 MG/1 ML VIAL ONE (07:27)
[2021-12-22] MEDS ORDERED: LIDOCAINE HCL/PF 1% SDV 5ML VIAL ONE (07:27)
[2021-12-22 09:55] VITALS: RESP 18
[2021-12-22] MEDS ORDERED: LIDOCAINE HCL 1% PRESERVATIVE FREE - 30ML VIAL IJ ONE (12:55)
[2021-12-22] MEDS ORDERED: DEXAMETHASONE SOD PHOSPHATE 10 MG/1 ML VIAL IM ONE (12:55)
[2021-12-22] MEDS ORDERED: IOHEXOL 180 MG/1 ML ML IJ ONE ×2 (12:56)
[2021-12-22 15:15] VITALS: BP 120/63; PULSE 68; TEMP 97.5
== END 2021-12-22 14:05 | disposition home or self-care (01) ==
LOC: JASU-SURG 04:33
PROVIDERS: ATTEND Pain Medicine Pain Medicine
PROC: 3E0R33Z Introduction of Anti-inflammatory into Spinal Canal, Percutaneous Approach (ICD-10-PCS; 2021-12-22)
PROC: 3E0R3BZ Introduction of Anesthetic Agent into Spinal Canal, Percutaneous Approach (ICD-10-PCS; principal; 2021-12-22 11:00)
DX: M54.16 Radiculopathy, lumbar region (principal)
CPT/HCPCS: 76000-TC-FY; J1100

== ENCOUNTER 2022-11-05 04:21 | Day surgery (SDC) | payer OTHER, MEDICARE ==
[2022-11-03 09:30] VITALS: BMI 36.3
[2022-11-05 09:48] VITALS: TEMP 98
[2022-11-05 10:53] VITALS: BP 127/43; PULSE 69; RESP 14
== END 2022-11-05 11:05 | disposition home or self-care (01) ==
LOC: JASU-ENDO 04:21
PROVIDERS: ATTEND Internal Medicine Gastroenterology
PROC: 0DJD8ZZ Inspection of Lower Intestinal Tract, Via Natural or Artificial Opening Endoscopic (ICD-10-PCS; 2022-11-05)
PROC: 0DBL8ZX Excision of Transverse Colon, Via Natural or Artificial Opening Endoscopic, Diagnostic (ICD-10-PCS; principal; 2022-11-05 09:00)
DX: Z12.11 Encounter for screening for malignant neoplasm of colon (principal); D12.3 Benign neoplasm of transverse colon; K57.30 Diverticulosis of large intestine without perforation or abscess without bleeding; K64.8 Other hemorrhoids
CPT/HCPCS: 88305-TC; 88342-TC

== ENCOUNTER 2023-05-09 04:43 | Day surgery (SDC) | payer OTHER, MEDICARE ==
[2023-05-04 12:23] VITALS: BMI 36.0
[2023-05-09 08:54] VITALS: TEMP 17
[2023-05-09 09:37] VITALS: BP 102/40; PULSE 79; RESP 16
[2023-05-09 09:58] LABS: INR 1.1 (0.83-1.09); PROTHROMBIN TIME (PATIENT) 12.8 SEC (9.7-13.0)
[2023-05-09 10:00] LABS: BASO % 0.6 % (0-2.0); EOS % 3.7 % (0-4.5); HEMATOCRIT 30.4 % (32.4-45.2); HEMOGLOBIN 10.5 GM/dL (10.7-15.3); LYMPH % 18.5 % (8-40); MCH 29.6 pg (25.7-33.7); MCHC 34.5 g/dl (32.0-36.0); MEAN CELL VOLUME 85.9 fl (80-96); MEAN PLT VOLUME 8.5 fl (7.5-11.1); MONO % 7.1 % (3.8-10.2); NEUT % 70.1 % (42.8-82.8); PLATELET COUNT 197 10^3/uL (134-434); RBC 3.54 M/mm3 (3.60-5.2); WHITE BLOOD COUNT 7.5 K/mm3 (4.0-10.0)
[2023-05-09 10:10] LABS: CHLORIDE 95 mmol/L (98-107); POTASSIUM 4.4 mmol/L (3.5-5.1); SODIUM 132 mmol/L (136-145)
[2023-05-09 10:11] LABS: ANION GAP 6 mmol/L (4-13); CALCIUM 8.6 mg/dL (8.5-10.1); CO2 30 mmol/L (21-32); GLUCOSE,RANDOM 148 mg/dL (74-106)
[2023-05-09 10:12] LABS: ALBUMIN 3.3 g/dl (3.4-5.0); BLOOD UREA NITROGEN 31.8 mg/dL (7-18)
[2023-05-09 10:15] LABS: CREATININE 1.7 mg/dL (0.55-1.3); IRON SERUM 59 ug/dL (50-175); SGOT/AST 24 U/L (15-37); SGPT/ALT 24 U/L (13-61); TOTAL IRON BINDING CAPACITY 229 ug/dL (250-450)
[2023-05-09 10:16] LABS: BILIRUBIN,TOTAL 0.5 mg/dL (0.2-1); TOT PROT 6.2 g/dl (6.4-8.2)
[2023-05-09 10:18] LABS: ALK PHOS 84 U/L (45-117)
== END 2023-05-09 09:40 | disposition home or self-care (01) ==
LOC: JASU-ENDO 04:43
PROVIDERS: ATTEND Internal Medicine Gastroenterology
PROC: 0DBL8ZX Excision of Transverse Colon, Via Natural or Artificial Opening Endoscopic, Diagnostic (ICD-10-PCS; 2023-05-09)
PROC: 0DBN8ZX Excision of Sigmoid Colon, Via Natural or Artificial Opening Endoscopic, Diagnostic (ICD-10-PCS; 2023-05-09)
PROC: 3E0H8KZ Introduction of Other Diagnostic Substance into Lower GI, Via Natural or Artificial Opening Endoscopic (ICD-10-PCS; 2023-05-09)
PROC: 0DBH8ZX Excision of Cecum, Via Natural or Artificial Opening Endoscopic, Diagnostic (ICD-10-PCS; principal; 2023-05-09 08:00)
DX: Z51.11 Encounter for antineoplastic chemotherapy (principal); C18.3 Malignant neoplasm of hepatic flexure; D12.0 Benign neoplasm of cecum; D12.3 Benign neoplasm of transverse colon; D12.5 Benign neoplasm of sigmoid colon; K57.30 Diverticulosis of large intestine without perforation or abscess without bleeding; K63.89 Other specified diseases of intestine; Z85.038 Personal history of other malignant neoplasm of large intestine
CPT/HCPCS: 36415; 80053; 82378; 82728; 82962; 83540; 83550; 85025; 85045; 85610; 86140

== ENCOUNTER 2023-07-11 03:50 | Inpatient (IN) | payer OTHER, MEDICARE ==
[2023-07-11] MEDS ORDERED: INDOCYANINE GREEN 25 MG/10 ML VIAL IVPUSH ONE (07:14)
[2023-07-11] MEDS ORDERED: BUPIVACAINE HCL/PF 0.25% (2.5MG/ML) 10 ML VIAL ONE ×2 (07:15→10:33)
[2023-07-11] MEDS ORDERED: HEPARIN NA (PORCINE) 5,000 UNITS/ML 1ML VIAL ONE (07:15)
[2023-07-11] MEDS ORDERED: ROCURONIUM BROMIDE 50 MG/5 ML SYRINGE ONE ×2 (09:48→12:23)
[2023-07-11] MEDS ORDERED: ACETAMINOPHEN INJECTION 100 ML IVPB ONE ×2 (09:48→17:13)
[2023-07-11] MEDS ORDERED: LIDOCAINE HCL/PF 2% SDV 5ML VIAL ONE (09:48)
[2023-07-11] MEDS ORDERED: ONDANSETRON 4 MG/2 ML VIAL ONE (09:48)
[2023-07-11] MEDS ORDERED: MIDAZOLAM HCL 2 MG/2 ML SINGLE DOSE VIAL ONE (09:48)
[2023-07-11] MEDS ORDERED: DEXAMETHASONE SOD PHOSPHATE 4 MG/1 ML VIAL ONE (09:48)
[2023-07-11] MEDS ORDERED: cefOXitin SODIUM 2 GM VIAL (RESTRICTED TO ID) IVPB ONE (10:29)
[2023-07-11] MEDS: cefOXitin SODIUM 2 GM VIAL (RESTRICTED TO ID) IVPB ONE ×2 (10:29)
[2023-07-11] MEDS: BUPIVACAINE HCL/PF 0.25% (2.5MG/ML) 10 ML VIAL IJ ONE ×2 (11:07)
[2023-07-11] MEDS ORDERED: ONDANSETRON 4 MG/2 ML VIAL IVPUSH PRN (14:06)
[2023-07-11] MEDS ORDERED: SUGAMMADEX SODIUM 200 MG/2 ML VIAL ONE (14:25)
[2023-07-11] MEDS: LACTATED RINGERS SOLUTION 1,000 ML IV SCH (15:10)
[2023-07-11] MEDS ORDERED: HYDROmorphone HCl 2 MG/ML VIAL IVPUSH PRN (15:56)
[2023-07-11] MEDS ORDERED: HYDROmorphone HCl 2 MG/ML VIAL ONE (16:32)
[2023-07-11] MEDS: HYDROmorphone HCl 2 MG/ML VIAL IVPB ONE (16:36)
[2023-07-11] MEDS: ACETAMINOPHEN 1000 MG/100 ML BAG IVPB ONE (17:24)
[2023-07-11] MEDS: ACETAMINOPHEN 1000 MG/100 ML BAG IVPB SCH (17:24)
[2023-07-11] MEDS ORDERED: HEPARIN NA (PORCINE) 5,000 UNITS/ML 1ML VIAL SQ SCH (22:00)
[2023-07-11] MEDS: CARVEDILOL 25 MG TABLET (FP) PO SCH (22:18)
[2023-07-11] MEDS: FAMOTIDINE 20 MG TABLET PO SCH (22:18)
[2023-07-11] MEDS: VALSARTAN 160 MG TABLET PO SCH (22:18)
[2023-07-11] MEDS: amLODIPine BESYLATE 5 MG TABLET (FP) PO SCH (22:18)
[2023-07-12 04:23] VITALS: BMI 36.2
[2023-07-12 08:44] LABS: BASO % 0.2 % (0-2.0); EOS % 0.1 % (0-4.5); HEMATOCRIT 23.2 % (32.4-45.2); LYMPH % 7.9 % (8-40); MCH 29.6 pg (25.7-33.7); MCHC 34.6 g/dl (32.0-36.0); MEAN CELL VOLUME 85.7 fl (80-96); MEAN PLT VOLUME 8.8 fl (7.5-11.1); MONO % 8.7 % (3.8-10.2); NEUT % 83.1 % (42.8-82.8); PLATELET COUNT 173 10^3/uL (134-434); RBC 2.71 M/mm3 (3.60-5.2); RDW 12.6 % (11.6-15.6); WHITE BLOOD COUNT 10.3 K/mm3 (4.0-10.0)
[2023-07-12 09:04] LABS: POTASSIUM 4.4 mmol/L (3.5-5.1)
[2023-07-12 09:08] LABS: BLOOD UREA NITROGEN 22.9 mg/dL (7-18)
[2023-07-12 09:10] LABS: CALCIUM 7.9 mg/dL (8.5-10.1); MAGNESIUM 1.4 mg/dL (1.8-2.4)
[2023-07-12 09:11] LABS: CREATININE 1.4 mg/dL (0.55-1.3); PHOSPHOROUS 3.6 mg/dL (2.5-4.9)
[2023-07-12] MEDS: ENOXAPARIN NA (PORCINE) 40 MG/0.4 ML DISP.SYRIN SQ SCH (09:37)
[2023-07-12] MEDS: CHLORTHALIDONE 25 MG TABLET PO SCH (09:38)
[2023-07-12] MEDS: CHOLECALCIFEROL (VIT D3) 1,000 UNIT (25 MCG) TABLET PO SCH (09:40)
[2023-07-12] MEDS: CEFTRIAXONE 1 GM in DEXTROSE 5%-WATER - 50 ML IVPB ONE (09:46)
[2023-07-12] MEDS: PATIENT'S OWN MEDICATION (NON-FORMULARY) (Semaglutide [Rybelsus] 3 MG Tablet) PO SCH (10:00)
[2023-07-12] MEDS ORDERED: CHLORTHALIDONE 50 MG TABLET PO SCH (10:00)
[2023-07-12] MEDS ORDERED: HYDROmorphone HCl 2 MG/ML VIAL IVPB PRN (10:59)
[2023-07-12] MEDS: MAGNESIUM SULFATE IN WATER 2 GM/50 ML IVPB IVPB ONE (12:45)
[2023-07-12] MEDS: MAGNESIUM 1GM/D5W - 1 GM/100 ML IVPB IVPB ONE (12:54)
[2023-07-12] MEDS: FUROSEMIDE 40 MG/4 ML INJECTABLE VIAL IVPUSH ONE (16:37)
[2023-07-12 17:34] LABS: BASO % 0.5 % (0-2.0); EOS % 2.6 % (0-4.5); HEMATOCRIT 26.5 % (32.4-45.2); HEMOGLOBIN 9.2 GM/dL (10.7-15.3); LYMPH % 10.7 % (8-40); MCH 29.4 pg (25.7-33.7); MCHC 34.9 g/dl (32.0-36.0); MEAN CELL VOLUME 84.4 fl (80-96); MEAN PLT VOLUME 8.2 fl (7.5-11.1); MONO % 10.1 % (3.8-10.2); NEUT % 76.1 % (42.8-82.8); PLATELET COUNT 165 10^3/uL (134-434); RBC 3.14 M/mm3 (3.60-5.2); RDW 13.6 % (11.6-15.6); WHITE BLOOD COUNT 10.9 K/mm3 (4.0-10.0)
[2023-07-12] MEDS: ATORVASTATIN CA 80 MG TABLET (FP) PO SCH (22:14)
[2023-07-13 09:55] LABS: BASO % 0.5 % (0-2.0); EOS % 4.6 % (0-4.5); HEMATOCRIT 29.1 % (32.4-45.2); HEMOGLOBIN 10.5 GM/dL (10.7-15.3); LYMPH % 13.9 % (8-40); MCH 30.5 pg (25.7-33.7); MCHC 36.2 g/dl (32.0-36.0); MEAN CELL VOLUME 84.4 fl (80-96); MONO % 7.4 % (3.8-10.2); NEUT % 73.6 % (42.8-82.8); PLATELET COUNT 155 10^3/uL (134-434); RBC 3.45 M/mm3 (3.60-5.2); RDW 14.4 % (11.6-15.6); WHITE BLOOD COUNT 10.2 K/mm3 (4.0-10.0)
[2023-07-13 10:40] LABS: POTASSIUM 3.6 mmol/L (3.5-5.1)
[2023-07-13 10:48] LABS: POTASSIUM 3.6 mmol/L (3.5-5.1)
[2023-07-13 10:56] LABS: BLOOD UREA NITROGEN 21.9 mg/dL (7-18); MAGNESIUM 1.6 mg/dL (1.8-2.4)
[2023-07-13 10:58] LABS: ALBUMIN 2.5 g/dl (3.4-5.0); BLOOD UREA NITROGEN 22.1 mg/dL (7-18)
[2023-07-13 10:59] LABS: CREATININE 1.4 mg/dL (0.55-1.3)
[2023-07-13 11:00] LABS: CALCIUM 8.4 mg/dL (8.5-10.1)
[2023-07-13 11:01] LABS: CREATININE 1.4 mg/dL (0.55-1.3)
[2023-07-13 11:02] LABS: BILIRUBIN,TOTAL 0.6 mg/dL (0.2-1)
[2023-07-13] MEDS: TRANEXAMIC ACID 1000 MG/10 ML VIAL IVPB ONE (11:02)
[2023-07-13 11:54] LABS: CALCIUM 8.4 mg/dL (8.5-10.1)
[2023-07-13] MEDS: MAGNESIUM SULFATE IN WATER 2 GM/50 ML IVPB IVPB ONE (13:59)
[2023-07-13 14:55] LABS: BASO % 0.4 % (0-2.0); EOS % 4.7 % (0-4.5); HEMATOCRIT 29.1 % (32.4-45.2); HEMOGLOBIN 10.2 GM/dL (10.7-15.3); LYMPH % 13.2 % (8-40); MCH 29.9 pg (25.7-33.7); MEAN CELL VOLUME 85.3 fl (80-96); MEAN PLT VOLUME 8.5 fl (7.5-11.1); MONO % 8.2 % (3.8-10.2); NEUT % 73.5 % (42.8-82.8); PLATELET COUNT 150 10^3/uL (134-434); RBC 3.41 M/mm3 (3.60-5.2); RDW 14.6 % (11.6-15.6); WHITE BLOOD COUNT 10.7 K/mm3 (4.0-10.0)
[2023-07-13 21:25] LABS: BASO % 0.4 % (0-2.0); EOS % 5.3 % (0-4.5); HEMATOCRIT 30.4 % (32.4-45.2); HEMOGLOBIN 10.6 GM/dL (10.7-15.3); LYMPH % 17.4 % (8-40); MCHC 34.9 g/dl (32.0-36.0); MEAN CELL VOLUME 85.8 fl (80-96); MEAN PLT VOLUME 8.7 fl (7.5-11.1); MONO % 8.9 % (3.8-10.2); PLATELET COUNT 158 10^3/uL (134-434); RBC 3.54 M/mm3 (3.60-5.2); RDW 14.2 % (11.6-15.6); WHITE BLOOD COUNT 10.9 K/mm3 (4.0-10.0)
[2023-07-14 10:13] LABS: BASO % 0.4 % (0-2.0); EOS % 5.3 % (0-4.5); HEMATOCRIT 32.4 % (32.4-45.2); HEMOGLOBIN 11.3 GM/dL (10.7-15.3); LYMPH % 14.8 % (8-40); MCH 30.1 pg (25.7-33.7); MEAN CELL VOLUME 86.1 fl (80-96); MEAN PLT VOLUME 8.7 fl (7.5-11.1); MONO % 6.2 % (3.8-10.2); NEUT % 73.3 % (42.8-82.8); PLATELET COUNT 178 10^3/uL (134-434); RBC 3.76 M/mm3 (3.60-5.2); RDW 14.6 % (11.6-15.6); WHITE BLOOD COUNT 11.7 K/mm3 (4.0-10.0)
[2023-07-14 10:27] LABS: POTASSIUM 3.9 mmol/L (3.5-5.1)
[2023-07-14 10:33] LABS: CALCIUM 8.9 mg/dL (8.5-10.1)
[2023-07-14 10:34] LABS: MAGNESIUM 1.8 mg/dL (1.8-2.4)
[2023-07-14 10:37] LABS: CREATININE 1.3 mg/dL (0.55-1.3)
[2023-07-14] MEDS: OXYBUTYNIN CHLORIDE 5 MG TABLET PO SCH (13:31)
[2023-07-14 18:35] LABS: BASO % 0.5 % (0-2.0); EOS % 5.4 % (0-4.5); HEMATOCRIT 30.1 % (32.4-45.2); HEMOGLOBIN 10.5 GM/dL (10.7-15.3); LYMPH % 19.8 % (8-40); MCHC 34.9 g/dl (32.0-36.0); MEAN PLT VOLUME 8.3 fl (7.5-11.1); MONO % 7.9 % (3.8-10.2); NEUT % 66.4 % (42.8-82.8); PLATELET COUNT 177 10^3/uL (134-434); RDW 14.9 % (11.6-15.6); WHITE BLOOD COUNT 11.5 K/mm3 (4.0-10.0)
[2023-07-15] MEDS ORDERED: oxyCODONE HCL 5 MG TABLET PO PRN (09:34)
[2023-07-15 10:12] LABS: BASO % 0.5 % (0-2.0); EOS % 5.1 % (0-4.5); HEMOGLOBIN 8.6 GM/dL (10.7-15.3); LYMPH % 18.4 % (8-40); MCHC 34.5 g/dl (32.0-36.0); MEAN PLT VOLUME 8.4 fl (7.5-11.1); MONO % 6.3 % (3.8-10.2); NEUT % 69.7 % (42.8-82.8); PLATELET COUNT 176 10^3/uL (134-434); RBC 2.88 M/mm3 (3.60-5.2); RDW 14.4 % (11.6-15.6); WHITE BLOOD COUNT 10.1 K/mm3 (4.0-10.0)
[2023-07-15 10:27] LABS: POTASSIUM 3.8 mmol/L (3.5-5.1)
[2023-07-15 10:31] LABS: CALCIUM 8.4 mg/dL (8.5-10.1)
[2023-07-15 10:32] LABS: BLOOD UREA NITROGEN 21.9 mg/dL (7-18)
[2023-07-15 10:35] LABS: CREATININE 1.6 mg/dL (0.55-1.3)
[2023-07-15 16:25] LABS: BASO % 0.5 % (0-2.0); EOS % 5.4 % (0-4.5); HEMATOCRIT 26.2 % (32.4-45.2); HEMOGLOBIN 9.1 GM/dL (10.7-15.3); LYMPH % 23.3 % (8-40); MCH 29.8 pg (25.7-33.7); MCHC 34.5 g/dl (32.0-36.0); MEAN CELL VOLUME 86.4 fl (80-96); MONO % 9.9 % (3.8-10.2); NEUT % 60.9 % (42.8-82.8); PLATELET COUNT 172 10^3/uL (134-434); RBC 3.04 M/mm3 (3.60-5.2); RDW 14.2 % (11.6-15.6); WHITE BLOOD COUNT 11.1 K/mm3 (4.0-10.0)
[2023-07-15] MEDS: TRANEXAMIC ACID 1000 MG/10 ML VIAL IVPUSH SCH (17:37)
[2023-07-15 20:53] LABS: BASO % 0.6 % (0-2.0); EOS % 5.2 % (0-4.5); HEMATOCRIT 24.1 % (32.4-45.2); HEMOGLOBIN 8.3 GM/dL (10.7-15.3); LYMPH % 19.4 % (8-40); MCHC 34.5 g/dl (32.0-36.0); MEAN CELL VOLUME 86.9 fl (80-96); MEAN PLT VOLUME 8.4 fl (7.5-11.1); MONO % 9.7 % (3.8-10.2); NEUT % 65.1 % (42.8-82.8); PLATELET COUNT 153 10^3/uL (134-434); RBC 2.77 M/mm3 (3.60-5.2); RDW 14.3 % (11.6-15.6); WHITE BLOOD COUNT 11.7 K/mm3 (4.0-10.0)
[2023-07-15] MEDS: ACETAMINOPHEN 500 MG TABLET (FP) PO PRN (23:45)
[2023-07-16 09:19] LABS: BASO % 0.6 % (0-2.0); HEMATOCRIT 24.2 % (32.4-45.2); HEMOGLOBIN 8.5 GM/dL (10.7-15.3); LYMPH % 18.4 % (8-40); MCH 30.1 pg (25.7-33.7); MCHC 35.1 g/dl (32.0-36.0); MEAN PLT VOLUME 8.3 fl (7.5-11.1); MONO % 6.6 % (3.8-10.2); NEUT % 68.4 % (42.8-82.8); PLATELET COUNT 185 10^3/uL (134-434); RBC 2.81 M/mm3 (3.60-5.2); RDW 14.1 % (11.6-15.6); WHITE BLOOD COUNT 9.4 K/mm3 (4.0-10.0)
[2023-07-16 09:20] LABS: BASO % 0.6 % (0-2.0); HEMATOCRIT 24.1 % (32.4-45.2); HEMOGLOBIN 8.5 GM/dL (10.7-15.3); LYMPH % 19.9 % (8-40); MCH 30.5 pg (25.7-33.7); MCHC 35.3 g/dl (32.0-36.0); MEAN CELL VOLUME 86.4 fl (80-96); MEAN PLT VOLUME 8.4 fl (7.5-11.1); MONO % 6.2 % (3.8-10.2); NEUT % 67.3 % (42.8-82.8); PLATELET COUNT 186 10^3/uL (134-434); RBC 2.79 M/mm3 (3.60-5.2); RDW 14.6 % (11.6-15.6)
[2023-07-16 09:35] LABS: POTASSIUM 4.2 mmol/L (3.5-5.1)
[2023-07-16 09:37] LABS: CALCIUM 8.5 mg/dL (8.5-10.1)
[2023-07-16 09:38] LABS: ALBUMIN 2.9 g/dl (3.4-5.0); BLOOD UREA NITROGEN 15.9 mg/dL (7-18); CALCIUM 8.5 mg/dL (8.5-10.1)
[2023-07-16 09:39] LABS: BLOOD UREA NITROGEN 16.8 mg/dL (7-18)
[2023-07-16 09:41] LABS: CREATININE 1.3 mg/dL (0.55-1.3)
[2023-07-16 09:42] LABS: CREATININE 1.3 mg/dL (0.55-1.3)
[2023-07-16 09:43] LABS: BILIRUBIN,TOTAL 0.9 mg/dL (0.2-1); TOT PROT 5.4 g/dl (6.4-8.2)
[2023-07-16 14:22] VITALS: RESP 18
[2023-07-17 07:54] LABS: HEMOGLOBIN 7.4 GM/dL (10.7-15.3); MCH 30.2 pg (25.7-33.7); MCHC 35.4 g/dl (32.0-36.0); MEAN CELL VOLUME 85.4 fl (80-96); MEAN PLT VOLUME 8.4 fl (7.5-11.1); PLATELET COUNT 153 10^3/uL (134-434); RBC 2.46 M/mm3 (3.60-5.2); WHITE BLOOD COUNT 8.1 K/mm3 (4.0-10.0)
[2023-07-17 08:06] LABS: POTASSIUM 3.8 mmol/L (3.5-5.1)
[2023-07-17 08:12] LABS: CREATININE 1.4 mg/dL (0.55-1.3)
[2023-07-18 06:03] VITALS: PULSE 76
[2023-07-18 08:50] LABS: BASO % 0.5 % (0-2.0); EOS % 6.3 % (0-4.5); HEMATOCRIT 27.2 % (32.4-45.2); HEMOGLOBIN 9.8 GM/dL (10.7-15.3); LYMPH % 17.5 % (8-40); MCH 30.5 pg (25.7-33.7); MEAN CELL VOLUME 84.9 fl (80-96); MEAN PLT VOLUME 8.2 fl (7.5-11.1); NEUT % 66.7 % (42.8-82.8); PLATELET COUNT 191 10^3/uL (134-434); RDW 13.8 % (11.6-15.6); WHITE BLOOD COUNT 8.4 K/mm3 (4.0-10.0)
[2023-07-18 09:10] LABS: POTASSIUM 3.9 mmol/L (3.5-5.1)
[2023-07-18 09:14] LABS: BLOOD UREA NITROGEN 18.2 mg/dL (7-18)
[2023-07-18 09:15] LABS: ALBUMIN 2.9 g/dl (3.4-5.0); CALCIUM 8.6 mg/dL (8.5-10.1)
[2023-07-18 09:18] LABS: CREATININE 1.3 mg/dL (0.55-1.3)
[2023-07-18 09:19] LABS: BILIRUBIN,TOTAL 0.7 mg/dL (0.2-1); TOT PROT 5.7 g/dl (6.4-8.2)
[2023-07-18 13:45] VITALS: BP 140/54; TEMP 97.9
== END 2023-07-18 14:39 | disposition home or self-care (01) | DRG 330 ==
LOC: J2C 03:50 → J8W 21:44
PROVIDERS: ADMIT Internal Medicine; ATTEND Internal Medicine
PROC: 0DTF4ZZ Resection of Right Large Intestine, Percutaneous Endoscopic Approach (ICD-10-PCS; 2023-07-11)
PROC: 8E0W4CZ Robotic Assisted Procedure of Trunk Region, Percutaneous Endoscopic Approach (ICD-10-PCS; 2023-07-11)
PROC: 30233N1 Transfusion of Nonautologous Red Blood Cells into Peripheral Vein, Percutaneous Approach (ICD-10-PCS; principal; 2023-07-11 09:30)
DX: C18.2 Malignant neoplasm of ascending colon (principal); D62 Acute posthemorrhagic anemia; I12.9 Hypertensive chronic kidney disease with stage 1 through stage 4 chronic kidney disease, or unspecified chronic kidney disease; N18.9 Chronic kidney disease, unspecified; E11.22 Type 2 diabetes mellitus with diabetic chronic kidney disease; K21.9 Gastro-esophageal reflux disease without esophagitis; E78.5 Hyperlipidemia, unspecified; E04.1 Nontoxic single thyroid nodule
CPT/HCPCS: 36415; 36430; 80048; 80053; 82962; 83735; 84100; 85025; 85027; 86140; 86850; 86900; 86901; 86922; 94010; 94760; 97116-GP; 97161-GP; J0131; J1644; P9058